=== PATIENT | female | born 1975 | race American Indian/Alaskan Native ===

== ENCOUNTER 2024-07-10 05:00 | Day surgery (SDC) | payer OTHER ==
[2024-07-04 13:10] VITALS: BP 110/72
[~2024-07-10] VITALS: Ht 154.9 cm; Wt 47.2 kg
[~2024-07-10 05:00] MED LIST: SYNTHROID88 MCG PO
== END 2024-07-10 12:35 | disposition home or self-care (01) ==
LOC: CIR.AMB 05:00
PROVIDERS: ATTEND Obstetrics & Gynecology
DX: N84.0 Polyp of corpus uteri (principal); E03.8 Other specified hypothyroidism; J45.909 Unspecified asthma, uncomplicated; Z91.013 Allergy to seafood; Z88.5 Allergy status to narcotic agent